=== PATIENT | male | born 1960 | race Caucasian/White ===

== ENCOUNTER 2021-09-23 19:37 | Emergency (ER) | payer BC ==
[~2021-09-23] VITALS: Ht 198.1 cm; Wt 113.6 kg
[2021-09-23 20:17] VITALS: BP 130/82
[2021-09-23] MEDS ORDERED: (None)3.5 GM OD (21:40)
[2021-09-23] MEDS ORDERED: GENTAMICIN SULF5 ML OD (21:40)
[2021-09-23 22:14] VITALS: BP 130/82
== END 2021-09-23 22:14 | disposition home or self-care (01) | DRG 125 ==
LOC: ED 19:37
DX: S05.01XA Injury of conjunctiva and corneal abrasion without foreign body, right eye, initial encounter (principal); X58.XXXA Exposure to other specified factors, initial encounter